=== PATIENT | female | born 1975 | race Caucasian/White ===

== ENCOUNTER 2016-10-07 10:48 | Outpatient (CLI) ==
--- NOTE | 2016-10-07 11:27 | DI ---
EXAM: Chest two views CLINICAL INDICATION: Cough. COMPARISON: 05/26/2012. FINDINGS: PA and lateral views of the thorax are provided. The pulmonary parenchyma is clear and there is no pleural abnormality. The cardiomediastinal silhou ette and visualized bony structures are unremarkable. IMPRESSION: Negative chest x-ray.
[2016-10-07 11:28] LABS: BASOPHILS % (AUTO) 0.2 % (0.0-3.0); EOSINOPHILS # (AUTO) 0.1 K/ul (0.0-0.7); EOSINOPHILS % (AUTO) 0.9 % (0.0-7.0); HEMATOCRIT 40.9 % (37.0-47.0); HEMOGLOBIN 14.3 g/dl (12.0-16.0); IMMATURE GRANULOCYTE % (AUTO) 0.2 % (0.0-5.0); LYMPHOCYTES # (AUTO) 1.4 K/uL (0.60-3.4); LYMPHOCYTES % (AUTO) 17.5 (10.0-50.0); MEAN CORPUSCULAR HEMOGLOBIN 31.4 pg (27.0-31.0); MEAN CORPUSCULAR VOLUME 89.7 fl (81.0-99.0); MONOCYTES # (AUTO) 0.5 K/uL (0.4-2.0); NEUTROPHILS # (AUTO) 6.1 K/ul (2.0-6.9); NEUTROPHILS % (AUTO) 75.2; PLATELET COUNT 208 10^3/uL (140-440); RED BLOOD COUNT 4.56 10^6/ul (4.20-5.40); WHITE BLOOD COUNT 8.12 K/ul (4.6-10.2)
[2016-10-07 12:09] LABS: ALBUMIN 3.7 g/dL (3.4-5.0); ALBUMIN/GLOBULIN RATIO 0.97; ANION GAP 14.5; BILIRUBIN,TOTAL 0.37 mg/dL (0.00-1.20); BUN/CREATININE RATIO 6.66; CALCIUM 9.2 mg/dL (8.2-10.2); CHOL/HDL RATIO 4.4 (4.5-5.5); CREATININE 0.75 mg/dL (0.60-1.30); POTASSIUM 3.5 mmol/L (3.5-5.10); TOTAL PROTEIN 7.5 g/dL (6.4-8.2)
[2016-10-07 12:28] LABS: FLU INTERNAL QC INTERNAL QC VALID; RAPID FLU A NEGATIVE (NEGATIVE); RAPID FLU B NEGATIVE (NEGATIVE)
== END 2016-10-07 10:49 | disposition home or self-care (01) ==
LOC: CAR 10:48 → RAD 10:49
PROVIDERS: ATTEND Nurse Practitioner Family
DX: J02.9 Acute pharyngitis, unspecified (principal); R05 Cough; R50.9 Fever, unspecified; Z72.0 Tobacco use
CPT/HCPCS: 36415; 80053; 80061; 84443; 85025; 87651; 87804; 87880

== ENCOUNTER 2016-10-07 11:39 | Outpatient (CLI) | END 2016-10-07 11:40 | disposition home or self-care (01) | LOC: LAB 11:39 | PROVIDERS: ATTEND Nurse Practitioner Family | DX: R05 Cough (principal); R50.9 Fever, unspecified; J02.9 Acute pharyngitis, unspecified; Z72.0 Tobacco use ==

== ENCOUNTER 2016-12-11 17:22 | Emergency (ER) ==
[2016-12-11 17:25] VITALS: BP 117/110; TEMP 98.4; BMI 30.2
[2016-12-11] MEDS ORDERED: LOMOTIL PO STA (17:40)
[2016-12-11] MEDS ORDERED: ZOFRAN 4 MG/2 ML IM STA (17:40)
[2016-12-11 17:59] LABS: BASOPHILS % (AUTO) 0.3 % (0.0-3.0); EOSINOPHILS % (AUTO) 0.1 % (0.0-7.0); HEMATOCRIT 46.6 % (37.0-47.0); HEMOGLOBIN 16.6 g/dl (12.0-16.0); IMMATURE GRANULOCYTE % (AUTO) 0.4 % (0.0-5.0); LYMPHOCYTES # (AUTO) 1.2 K/uL (0.60-3.4); LYMPHOCYTES % (AUTO) 12.4 (10.0-50.0); MEAN CORPUSCULAR HEMOGLOBIN 31.8 pg (27.0-31.0); MEAN CORPUSCULAR HGB CONC 35.6 (31.8-35.4); MEAN CORPUSCULAR VOLUME 89.3 fl (81.0-99.0); MONOCYTES # (AUTO) 0.1 K/uL (0.4-2.0); MONOCYTES % (AUTO) 1.1 (0-10); NEUTROPHILS % (AUTO) 85.7; PLATELET COUNT 329 10^3/uL (140-440); RED BLOOD COUNT 5.22 10^6/ul (4.20-5.40); WHITE BLOOD COUNT 9.38 K/ul (4.6-10.2)
[2016-12-11 18:05] LABS: BILIRUBIN,URINE Negative (NEGATIVE); KETONES,URINE Negative (NEGATIVE); LEUKOCYTE ESTERASE ,URINE 3+ (NEGATIVE); NITRITE,URINE Negative (NEGATIVE); PH,URINE 7.5 (5-9); PROTEIN,URINE Negative (NEGATIVE); URINE, BLOOD Negative (NEGATIVE)
[2016-12-11 18:07] LABS: ADD URINE MICROSCOPIC YES; BACTERIA,URINE 1+ (NOT PRESENT)
--- NOTE | 2016-12-11 18:18 | CT ---
EXAM: Noncontrast CT of the abdomen and pelvis. HISTORY: Abdominal pain. COMPARISON: 09/23/2011 TECHNIQUE: Contiguous axial images at 3 mm intervals were obtained from lung bases through the pelv is. No contrast was given. Coronal reformats were reviewed. FINDINGS: The study is limited without contrast. CHEST: The lung bases show no lobar consolidation or effusion. The heart size is within normal see its. ABDOMEN: Evaluation of the soft tissue organs is limited without contrast. LIVER: Noncontrast images of the liver show no solid mass lesion or intrahepatic ductal dilatation. BILIARY: The gallbladder is normally distended. No gallstones are noted. No pericholecystic fluid or inflammation. The common bile duct is normal. SPLEEN: The spleen is unremarkable. PANCREAS: The pancreas shows no mass lesion or peripancreatic inflammation. ADRENAL GLANDS: The adrenal glands are normal. RENAL: The kidneys show no hydronephrosis or nephrolithiasis. There are no obstructing ureteral st ones. No solid mass lesions are identified. RETROPERITONEUM: The aorta is unopacified. No aneurysm is identified. No significant aortic calci fications are seen. There is no retroperitoneal or mesenteric adenopathy. BOWEL: The bowel is unopacified. There is no obstruction or inflammatory change. There is no free fluid or free air. No significant inflammatory changes are seen. The appendix is identified an d is normal. PELVIS: BLADDER: The bladder is not well distended which limits evaluation.. GENITOURINARY STRUCTURES: The uterus and ovaries are unremarkable. OSSEOUS STRUCTURES: The osseous structures are normal for age. IMPRESSION 1. No acute intra-abdominal abnormality. Limited study without contrast. No obstructing ureteral stones. 2. The appendix is normal. 3. The bladder is not well distended which limits evaluation. There may be some bladder wall thick ening.
[2016-12-11 18:21] LABS: ALBUMIN 4.2 g/dL (3.4-5.0); ALBUMIN/GLOBULIN RATIO 1.05; ANION GAP 16.2; BILIRUBIN,TOTAL 0.37 mg/dL (0.00-1.20); BUN/CREATININE RATIO 4.81; CALCIUM 10.6 mg/dL (8.2-10.2); CREATININE 0.83 mg/dL (0.60-1.30); POTASSIUM 4.2 mmol/L (3.5-5.10); TOTAL PROTEIN 8.2 g/dL (6.4-8.2)
--- NOTE | 2016-12-11 18:33 | ED.PDOC ---
General ED Provider: Dr. JOHANNA SMITH Chief Complaint: Nausea/Vomiting Stated Complaint: abdominal pain Time Seen by Physician: 17:22 Mode of Arrival: Walk-In Information Source: Patient Exam Limitations: No limitations Primary Care Provider: ROXANNA HERNANDEZ Nursing and Triage Documentation Reviewed and Agree: Yes (seen with nursing staff at all times ) GI Complaint Exam - Abdominal Pain Complaint/Exam Onset: Gradual Duration: 2 days Symptoms Are: Still present Timing: Constant Initial Severity: Moderate Current Severity: Mild Location of Pain: Diffuse Character: Reports: Dull, Aching Aggravating: Reports: None Alleviating: Reports: None Associated Signs and Symptoms: Denies: Diaphoresis, Fever, Cough, Chest pain, Dizziness, Back pain, Constipation, Blood in stool, Dysuria, Urinary frequency, Decreased urine output, Decreased appetite, Vaginal bleeding, Vaginal discharge , Nausea, Vomiting, Diarrhea, Sore throat, Decreased activity Related History: Reports: Similar episode AAA Risk Factors: Reports: None Cardiac Risk Factors: Reports: None Ectopic Risk Factors: Reports: None Ovarian Torsion Risk Factors: Reports: None Surgical Obstruction Risk Factors: Reports: None Related Surgical History: Reports: None Patient Rh Status: Unknown Abdominal Findings: Present: None Review of Systems - Review Of Systems Constitutional: Reports: Malaise Eyes: Reports: No symptoms Ears, Nose, Mouth, Throat: Reports: No symptoms Respiratory: Reports: No symptoms Cardiac: Reports: No symptoms GI: Reports: Abdominal pain, Nausea, Vomiting : Reports: No symptoms Musculoskeletal: Reports: No symptoms Skin: Reports: No symptoms Neurological: Reports: No symptoms Endocrine: Reports: No symptoms Hematologic/Lymphatic: Reports: No symptoms All Other Systems: Reviewed and Negative Past Medical History - Past Medical History Previously Healthy: Yes Endocrine: Reports: None Cardiovascular: Reports: None Respiratory: Reports: COPD Hematological: Reports: None Gastrointestinal: Reports: None Genitourinary: Reports: None Neuro/Psych: Reports: Anxiety, Depression Musculoskeletal: Reports: None Cancer: Reports: None Last Menstrual Period: last year menopause - Surgical History General Surgical History: Reports: None - Family History Family History: Reports: None - Social History Smoking Status: Current every day smoker Hx Substance Use: No Alcohol Screening: None Physical Exam - Physical Exam Appearance: Well-appearing, No pain distress, Well-nourished Eyes: ANTIONETTE, EOMI, Conjunctiva clear ENT: Ears normal, Nose normal, Oropharynx normal Respiratory: Airway patent, Breath sounds clear, Breath sounds equal, Respirations nonlabored Cardiovascular: RRR, Pulses normal, No rub, No murmur GI/: Soft, Nontender, No masses, Bowel sounds normal, No Organomegaly Musculoskeletal: Normal strength, ROM intact, No edema, No calf tenderness Skin: Warm, Dry, Normal color Neurological: Sensation intact, Motor intact, Reflexes intact, Cranial nerves intact, Alert, Oriented Psychiatric: Affect appropriate, Mood appropriate Interpretation - Radiology Interpretation Radiology Interpretation By: Radiologist Radiology Results: No acute changes Re-Evaluation - Re-Evaluation Time of Re-Evaluation: 18:00 Status: Improved Vital Signs Stable: Yes Pain Level: 04/29 Appearance: NAD Lungs: Clear Skin: Warm and Dry Neuro: Alert and Oriented X3 CV: RRR Critical Care Note - Critical Care Note Total Time (mins): 0 Course - Course Hematology/Chemistry: 12/11/16 17:45 12/11/16 17:45 Orders, Labs, Meds: Lab Review 12/11/16 12/11/16 17:45 17:55 WBC 9.38 RBC 5.22 Hgb 16.6 H Hct 46.6 MCV 89.3 MCH 31.8 H MCHC 35.6 H RDW Coeff of Sabrina 13.0 Plt Count 329 Immature Gran % (Auto) 0.4 Neut % (Auto) 85.7 Lymph % (Auto) 12.4 Wetzel % (Auto) 1.1 Eos % (Auto) 0.1 Baso % (Auto) 0.3 Immature Gran # (Auto) 0.0 Neut # 8.0 H Lymph # 1.2 Wetzel # 0.1 L Eos # 0.0 Baso # 0.0 Sodium 139 Potassium 4.2 Chloride 101 Carbon Dioxide 26 Anion Gap 16.2 BUN 4 L Creatinine 0.83 Estimated GFR (MDRD) 75.00 BUN/Creatinine Ratio 4.81 Glucose 122 H Calcium 10.6 H Total Bilirubin 0.37 AST 24 ALT 19 Alkaline Phosphatase 114 H Total Protein 8.2 Albumin 4.2 Globulin 4.0 Albumin/Globulin Ratio 1.05 Amylase 41 Lipase 20 Urine Color Yellow Urine Clarity Clear Urine pH 7.5 Ur Specific [place] 1.010 Urine Protein Negative Urine Glucose (UA) Negative Urine Ketones Negative Urine Blood Negative Urine Nitrite Negative Urine Bilirubin Negative Urine Urobilinogen 0.2 Ur Leukocyte Esterase 3+ Urine Microscopic WBC 10-20 Ur Squamous Epith Cells 2-5 Urine Bacteria 1+ Orders Category Date Time Status AMYLASE Stat LAB 12/11/16 17:39 Ordered CBC W/ AUTO DIFF Stat LAB 12/11/16 17:39 Ordered COMPREHENSIVE METABOLIC PANEL Stat LAB 12/11/16 17:39 Ordered LIPASE Stat LAB 12/11/16 17:39 Ordered URINALYSIS C & S IF INDICATED Stat LAB 12/11/16 17:39 Uncollected URINE CULTURE Stat LAB 12/11/16 17:55 Received Diphenoxylate HCl/Atropine [Lomotil] MEDS 12/11/16 17:40 Stat 2 tab PO ONCE STA Ondansetron HCl/Pf [Zofran 4 mg/2 ml] MEDS 12/11/16 17:40 Stat 4 mg IM ONCE STA CT ABDOMEN/PELVIS WO CONTRAST Stat RADS 12/11/16 17:39 Ordered Medications Discontinued Medications Generic Name Dose Route Start Last Admin Trade Name Freq PRN Reason Stop Dose Admin Diphenoxylate HCl/Atropine 2 tab 12/11/16 17:40 12/11/16 17:51 Lomotil PO 12/11/16 17:41 2 tab ONCE STA Administration Ondansetron HCl 4 mg 12/11/16 17:40 12/11/16 17:50 Zofran 4 Mg/2 Ml IM 12/11/16 17:41 4 mg ONCE STA Administration Vital Signs: Temp Pulse Resp BP Pulse Ox 12/11/16 17:22 98.4 F 101 H 20 117/110 H 95 Departure - Departure Time of Disposition: 18:32 Disposition: HOME SELF-CARE Discharge Problem: Nausea, Vomiting Abdominal pain Qualifiers: Abdominal location: unspecified location Qualifier Code: (R10.9) Unspecified abdominal pain Instructions: Abdominal Pain (ED) Condition: Good Pt referred to PMD for follow-up: Yes Additional Instructions: Please call your Family Physician as soon as possible to schedule a follow-up appointment. Allergies/Adverse Reactions: Allergies No Known Allergies Allergy (Verified 12/11/16 17:25) Home Medications: Ambulatory Orders Cyclobenzaprine HCl 10 mg PO TID 02/22/16 Hydrocodone/Acetaminophen [[place] 7.5-325 Tablet] 1 each PO TID 02/22/16 Venlafaxine HCl [Effexor Xr] 37.5 mg PO DAILY 02/22/16
== END 2016-12-11 18:44 | disposition home or self-care (01) ==
LOC: ED 17:22
DX: R11.2 Nausea with vomiting, unspecified (principal); R10.84 Generalized abdominal pain; F17.210 Nicotine dependence, cigarettes, uncomplicated
CPT/HCPCS: 36415; 80053; 81001; 82150; 83690; 85025; 87086; 96372; 99283

== ENCOUNTER 2017-10-26 20:17 | Emergency (ER) ==
[2017-10-26 20:20] VITALS: BP 125/83; TEMP 98; BMI 29.6
--- NOTE | 2017-10-26 20:23 | ED.PDOC ---
General ED Provider: Dr. DARVIN FLOWERS Chief Complaint: Back Pain Time Seen by Physician: 20:05 Mode of Arrival: Walk-In Information Source: Patient Primary Care Provider: ROXANNA HERNANDEZ Sepsis Protocol: For patient's 13 years and over: Temp is 96.8 and below OR 101 and greater Pulse >90 BPM Resp >20/minute Acutely Altered Mental Status Are patient's symptoms suggestive of a new infection, such as: -Pneumonia -Skin, Soft Tissue -Endocarditis -UTI -Bone, Joint Infection -Implantable Device -Acute Abdominal Infection -Wound Infection -Meningitis -Blood Stream Catheter Infection -Unknown Past Medical History - Past Medical History Previously Healthy: Yes Endocrine: Reports: None Cardiovascular: Reports: None Respiratory: Reports: COPD Hematological: Reports: None Gastrointestinal: Reports: None Genitourinary: Reports: None Neuro/Psych: Reports: Anxiety, Depression Musculoskeletal: Reports: None Cancer: Reports: None Last Menstrual Period: NONE - Surgical History General Surgical History: Reports: None - Family History Family History: Reports: None - Social History Smoking Status: Current every day smoker, Heavy tobacco smoker Hx Substance Use: No Alcohol Screening: None - Immunizations Tetanus Shot up to Date: Yes Course - Course Vital Signs: Temp Pulse Resp BP Pulse Ox 10/26/17 20:18 98 F 100 H 20 125/83 96 Departure - Departure Time of Disposition: 20:21 Disposition: HOME SELF-CARE Discharge Problem: Contusion of head Qualifiers: Encounter type: initial encounter Contusion of head detail: scalp Qualified Code(s): S00.03XA - Contusion of scalp, initial encounter Instructions: Contusion in Children (DC), Abrasion in Children (ED) Allergies/Adverse Reactions: Allergies No Known Allergies Allergy (Verified 12/11/16 17:25) Home Medications: Ambulatory Orders Cyclobenzaprine HCl 10 mg PO TID 02/22/16 Hydrocodone/Acetaminophen [[place] 7.5-325 Tablet] 1 each PO TID 02/22/16 Venlafaxine HCl [Effexor Xr] 37.5 mg PO DAILY 02/22/16
[2017-10-26] MEDS ORDERED: DEMEROL 50 MG/ML VIAL IM STA (20:36)
[2017-10-26] MEDS ORDERED: PHENERGAN 25 MG/ML VIAL IM STA (20:36)
[2017-10-26] MEDS ORDERED: DEMEROL 50 MG/ML SYRINGE ONE (20:41)
--- NOTE | 2017-10-26 20:54 | ED.PDOC ---
General ED Provider: Dr. DARVIN FLOWERS Chief Complaint: Back Pain Stated Complaint: Patient is a 42 year old who comes to the ER with severe lower back pain. States that she ran out of her pain medications that she gets from pain managmetn. States she was told they had suspended her pain medication for another week. Time Seen by Physician: 20:30 Mode of Arrival: Walk-In Information Source: Patient Primary Care Provider: ROXANNA HERNANDEZ Nursing and Triage Documentation Reviewed and Agree: Yes Does patient meet sepsis criteria?: No System Inflammatory Response Syndrome: Not Applicable Sepsis Protocol: For patient's 13 years and over: Temp is 96.8 and below OR 101 and greater Pulse >90 BPM Resp >20/minute Acutely Altered Mental Status Are patient's symptoms suggestive of a new infection, such as: -Pneumonia -Skin, Soft Tissue -Endocarditis -UTI -Bone, Joint Infection -Implantable Device -Acute Abdominal Infection -Wound Infection -Meningitis -Blood Stream Catheter Infection -Unknown Musculoskeletal Complaint Exam - Back Pain Complaint/Exam Mechanism of Injury: Reports: No known trauma Onset/Duration: 3 days Symptoms Are: Still present Timing: Constant Initial Severity: Moderate Current Severity: Severe Location: Reports: Discrete (Lower back ), Radiating (lower buttocks ) Character: Reports: Dull, Aching, Spasmodic Aggravating: Reports: Movements Alleviating: Reports: Rest Associated Signs and Symptoms: Denies: Swelling, Redness, Bruising, Fever, Weakness, Numbness, Tingling, Abdominal pain, Flank pain, Bladder incontinence, Bowel incontinence, Weight loss, Pain with weight bearing Cauda Equina Risk Factors: Reports: None Epidural Abcess Risk Factors: Reports: None Related Surgical History: Reports: None Focal Tenderness: No (Diffuse tenderness ) Paraspinal Muscle Tenderness: Yes Paraspinal Muscle Spasm: Yes Scoliosis: No Lordosis: No Kyphosis: No SLR Test: Right Negative, Left Negative Hip Motion Testing Pain: Right Negative, Left Negative Focal Weakness: Present: None Focal Sensory Loss: Present: None Gait: Present: Abnormal (due to pain ) Back Picture: 1 - pain and tenderness Differential Diagnoses: Osteoporosis, Strain, Sprain Review of Systems - Review Of Systems Constitutional: Reports: No symptoms Eyes: Reports: No symptoms Ears, Nose, Mouth, Throat: Reports: No symptoms Respiratory: Reports: No symptoms Cardiac: Reports: No symptoms GI: Reports: No symptoms : Reports: No symptoms Musculoskeletal: Reports: Back pain Skin: Reports: No symptoms Neurological: Reports: No symptoms Endocrine: Reports: No symptoms Hematologic/Lymphatic: Reports: No symptoms All Other Systems: Reviewed and Negative Past Medical History - Past Medical History Previously Healthy: Yes Endocrine: Reports: None Cardiovascular: Reports: None Respiratory: Reports: COPD Hematological: Reports: None Gastrointestinal: Reports: None Genitourinary: Reports: None Neuro/Psych: Reports: Anxiety, Depression Musculoskeletal: Reports: Back Pain Cancer: Reports: None Last Menstrual Period: NONE - Surgical History General Surgical History: Reports: None - Family History Family History: Reports: None - Social History Smoking Status: Current every day smoker, Heavy tobacco smoker Hx Substance Use: No Alcohol Screening: None - Immunizations Tetanus Shot up to Date: Yes Physical Exam - Physical Exam Appearance: Ill-appearing, Obese Ill-appearing: Mild Pain Distress: Severe Neck: Supple Respiratory: Airway patent, Breath sounds clear, Breath sounds equal, Respirations nonlabored Cardiovascular: RRR, Pulses normal, No rub, No murmur GI/: Soft Musculoskeletal: Limited ROM (on the back. ) Skin: Warm, Dry Neurological: Sensation intact, Alert, Oriented Psychiatric: Anxious Critical Care Note - Critical Care Note Total Time (mins): 0 Course - Course Orders, Labs, Meds: Orders Category Date Time Status Ketorolac Tromethamine [Toradol] MEDS 10/26/17 21:06 Discontinued 60 mg IM ONCE STA Meperidine HCl/Pf [Demerol 50 mg/ml Syringe] MEDS 10/26/17 20:41 Discontinued 50 mg .ROUTE .STK-MED ONE Meperidine HCl/Pf [Demerol 50 mg/ml Vial] MEDS 10/26/17 20:36 Discontinued 50 mg IM ONCE STA Promethazine HCl [Phenergan 25 mg/ml Vial] MEDS 10/26/17 20:36 Discontinued 25 mg IM ONCE STA Medications Discontinued Medications Generic Name Dose Route Start Last Admin Trade Name Freq PRN Reason Stop Dose Admin Ketorolac Tromethamine 60 mg 10/26/17 21:06 10/26/17 21:10 Toradol IM 10/26/17 21:07 60 mg ONCE STA Administration Meperidine HCl 50 mg 10/26/17 20:36 10/26/17 20:45 Demerol 50 Mg/Ml Vial IM 10/26/17 20:37 50 mg ONCE STA Administration Promethazine HCl 25 mg 10/26/17 20:36 10/26/17 20:45 Phenergan 25 Mg/Ml Vial IM 10/26/17 20:37 25 mg ONCE STA Administration Vital Signs: Temp Pulse Resp BP Pulse Ox 10/26/17 20:18 98 F 100 H 20 125/83 96 Departure - Departure Time of Disposition: 21:10 Disposition: HOME SELF-CARE Discharge Problem: Backache Instructions: Low Back Strain (ED), Lumbar Radiculopathy (ED) Condition: Stable Pt referred to PMD for follow-up: Yes IPMP verified?: No Additional Instructions: Call your pain management to get your pain medication refill Rest Follow up with PCP and pain management in 3-5 days Avoid heavy lifting/exercise Allergies/Adverse Reactions: Allergies No Known Allergies Allergy (Verified 10/26/17 20:24) Home Medications: Ambulatory Orders Cyclobenzaprine HCl 10 mg PO TID 02/22/16 Hydrocodone/Acetaminophen [[place] 7.5-325 Tablet] 1 each PO TID 02/22/16 Venlafaxine HCl [Effexor Xr] 37.5 mg PO DAILY 02/22/16 Disposition Discussed With: Patient
[2017-10-26] MEDS ORDERED: TORADOL IM STA (21:06)
== END 2017-10-26 21:28 | disposition home or self-care (01) ==
LOC: ED 20:17
DX: M54.5 Low back pain (principal)
CPT/HCPCS: 96372; 99282

== ENCOUNTER 2018-02-09 15:30 | Emergency (ER) ==
[2018-02-09 15:42] VITALS: BP 143/84; TEMP 97.9; BMI 29.9
== END 2018-02-09 15:52 | disposition left against medical advice (07) ==
LOC: ED 15:30
DX: M54.9 Dorsalgia, unspecified (principal); Z98.890 Other specified postprocedural states

== ENCOUNTER 2018-06-18 15:33 | Outpatient (CLI) | END 2018-06-18 15:34 | disposition home or self-care (01) | LOC: LAB 15:33 | PROVIDERS: ATTEND Pain Medicine Interventional Pain Medicine | DX: Z79.891 Long term (current) use of opiate analgesic (principal) | CPT/HCPCS: 36415; 84550; 85651; 86038; 86140; 86430 ==